=== PATIENT | male | born 1980 | race Caucasian/White ===

== ENCOUNTER → 2017-03-31 | Emergency (ER) | payer OTHER ==
[~2017-03-31] VITALS: Ht 167.6 cm; Wt 71.2 kg
[~2017-03-31] MED LIST: ESCI10TA PO; LIDOCAINE/PRILOCAINE 5 GM CREAM.GM. ONE; LIDOCAINE/PRILOCAINE 5 GM CREAM.GM. TP ONE; LORA-258 PO
--- NOTE | 2017-03-31 21:10 | NUR ---
Came to ED for C/O HEMMOROIDS, ABD PAIN, NAUSEOUS for few days now, had a problem before with the same problem.
--- NOTE | 2017-03-31 21:45 | NUR ---
MD assessed rectal using lidocaine, guiac test negative
--- NOTE | 2017-03-31 21:55 | NUR ---
Patient discharged to home in stable conditon. Written and verbal after care instructions given. Patient verbalizes understanding of instructions.
[2017-03-31 22:41] VITALS: BP 138/85
== END | disposition home or self-care (01) ==
LOC: ER 20:21
DX: K64.4 Residual hemorrhoidal skin tags (principal); Z91.018 Allergy to other foods
CPT/HCPCS: A4663

== ENCOUNTER 2018-03-25 16:19 | Emergency (ER) | payer BC, OTHER ==
[~2018-03-25] VITALS: Ht 167.6 cm; Wt 67.1 kg
[~2018-03-25 16:19] MED LIST changes: -LIDOCAINE/PRILOCAINE 5 GM CREAM.GM. ONE; -LIDOCAINE/PRILOCAINE 5 GM CREAM.GM. TP ONE
[2018-03-25] MEDS ORDERED: PREG50CA PO (16:28)
--- NOTE | 2018-03-25 17:50 | NUR ---
DR MENDIOLA AT THE BEDSIDE FOR MSE.
[2018-03-25] MEDS ORDERED: ONDANSETRON 4 MG/2 ML VIAL ONE (18:07)
[2018-03-25] MEDS ORDERED: KETOROLAC TROMETHAMINE 30 MG INJ ONE (18:07)
[2018-03-25 18:13] LABS: BASOPHILS % (AUTO) 0.4 % (0.0-2.0); EOSINOPHILS % (AUTO) 0.1 % (0.0-7.0); HEMOGLOBIN 15.1 g/dL (12.5-16.3); LYMPHOCYTES # (AUTO) 1.8 K/uL (20.0-40.0); LYMPHOCYTES % (AUTO) 21.3 % (20.5-51.5); MEAN CORPUSCULAR HEMOGLOBIN 34.1 uug (23.8-33.4); MEAN CORPUSCULAR HGB CONC 35 g/dL (32.5-36.3); MEAN CORPUSCULAR VOLUME 97.3 fL (73.0-96.2); MONOCYTES # (AUTO) 0.2 K/uL (2.0-10.0); MONOCYTES % (AUTO) 2.7 % (0.0-11.0); NEUTROPHILS # (AUTO) 6.3 K/uL (1.8-8.9); NEUTROPHILS % (AUTO) 75.5 % (38.5-71.5); PLATELET COUNT (AUTO) 187 K/uL (152-348); RED BLOOD CELL COUNT(AUTO) 4.42 MIL/uL (4.06-5.63); WHITE BLOOD COUNT (AUTO) 8.4 K/uL (3.6-10.2)
[2018-03-25] MEDS ORDERED: ONDANSETRON 4 MG/2 ML VIAL IV ONE (18:15)
[2018-03-25] MEDS ORDERED: KETOROLAC TROMETHAMINE 30 MG INJ IVP ONE (18:15)
[2018-03-25] MEDS ORDERED: IV NORMAL SALINE 1000 ML BAG IV ONE ×2 (18:15)
[2018-03-25 18:24] LABS: POTASSIUM 3.4 mmol/L (3.5-5.1)
[2018-03-25 18:28] LABS: BILIRUBIN,DIRECT 0.1 mg/dL (0.0-0.2); BILIRUBIN,TOTAL 0.8 mg/dL (0.2-1.0); TOTAL PROTEIN, SERUM 7.7 g/dL (6.4-8.2)
[2018-03-25] MEDS ORDERED: METOCLOPRAMIDE HCL 10 MG/2 ML VIAL ONE (18:37)
--- NOTE | 2018-03-25 18:38 | NUR ---
Pt state still being nauseous, aware.
[2018-03-25] MEDS ORDERED: METOCLOPRAMIDE HCL 10 MG/2 ML VIAL IV ONE (18:45)
--- NOTE | 2018-03-25 19:06 | NUR ---
Report given to Neelima VOGEL, I relinquish care of pt at this time.
--- NOTE | 2018-03-25 19:13 | NUR ---
REPORT TAKEN FROM JASPREET PRAJAPATI. ASSUMING PT CARE AT THIS TIME.
--- NOTE | 2018-03-25 19:41 | NUR ---
Patient discharged to home in stable conditon. Written and verbal after care instructions given. Patient verbalizes understanding of instructions. IV removed, w/ catheter intact. Pressure applied to site. No bleeding noted. Pt denies N/V at time of discharge. No distress noted. Pt accompanied by family member, and took all personal belongings.
[2018-03-25 19:44] VITALS: BP 122/76
== END 2018-03-25 19:45 | disposition home or self-care (01) ==
LOC: ER 16:20
DX: R11.10 Vomiting, unspecified (principal); R19.7 Diarrhea, unspecified; R10.9 Unspecified abdominal pain; Z88.8 Allergy status to other drugs, medicaments and biological substances; Z91.018 Allergy to other foods; Z79.899 Other long term (current) drug therapy
CPT/HCPCS: 36415; 83690; 85025; A4663; J1885; J2405; J2765; J7030

== ENCOUNTER 2018-03-31 18:29 | Emergency (ER) | payer BC, OTHER ==
[~2018-03-31] VITALS: Ht 165.1 cm; Wt 65.8 kg
[~2018-03-31 18:29] MED LIST changes: +PREG50CA PO
[2018-03-31] MEDS ORDERED: ONDANSETRON 4 MG/2 ML VIAL IV ONE (19:00)
[2018-03-31] MEDS ORDERED: IV NORMAL SALINE 1000 ML BAG IV ONE (19:00)
[2018-03-31] MEDS ORDERED: NORMAL SALINE FLUSH 10 ML DISP.SYRIN ONE (19:06)
[2018-03-31] MEDS ORDERED: SWABABLE VALVE TRANSFER SET EA MC ONE (19:06)
[2018-03-31] MEDS ORDERED: IOHEXOL 300MG/ML 100 ML INFUS..BTL ONE (19:07)
[2018-03-31] MEDS ORDERED: IV NORMAL SALINE 100 ML ONE (19:07)
[2018-03-31 19:08] LABS: BASOPHILS # (AUTO) 0.1 K/uL (0.0-8.0); BASOPHILS % (AUTO) 1.1 % (0.0-2.0); EOSINOPHILS # (AUTO) 0.3 K/uL (0.0-0.7); EOSINOPHILS % (AUTO) 4.4 % (0.0-7.0); HEMATOCRIT 45.1 % (36.7-47.1); HEMOGLOBIN 15.9 g/dL (12.5-16.3); LYMPHOCYTES # (AUTO) 2.8 K/uL (20.0-40.0); LYMPHOCYTES % (AUTO) 42.1 % (20.5-51.5); MEAN CORPUSCULAR HEMOGLOBIN 34.2 uug (23.8-33.4); MEAN CORPUSCULAR HGB CONC 35 g/dL (32.5-36.3); MEAN CORPUSCULAR VOLUME 97.1 fL (73.0-96.2); MONOCYTES # (AUTO) 0.3 K/uL (2.0-10.0); MONOCYTES % (AUTO) 4.6 % (0.0-11.0); NEUTROPHILS # (AUTO) 3.1 K/uL (1.8-8.9); NEUTROPHILS % (AUTO) 47.8 % (38.5-71.5); PLATELET COUNT (AUTO) 186 K/uL (152-348); RED BLOOD CELL COUNT(AUTO) 4.65 MIL/uL (4.06-5.63); WHITE BLOOD COUNT (AUTO) 6.6 K/uL (3.6-10.2)
[2018-03-31] MEDS ORDERED: ONDANSETRON 4 MG/2 ML VIAL ONE (19:10)
--- NOTE | 2018-03-31 19:18 | NUR ---
PATIENT WAS SEEN BY . IV PLACED, LABS DRAWN. MEDICATION GIVEN. CONSENT SIGNED FOR IV CONTRAST FRO CT. HANDOFF REPORT GIVEN TO GANESH
[2018-03-31 19:22] LABS: CREATININE 1.1 mg/dL (0.6-1.3); POTASSIUM 3.8 mmol/L (3.5-5.1)
[2018-03-31 19:26] LABS: BILIRUBIN,DIRECT 0.2 mg/dL (0.0-0.2); BILIRUBIN,TOTAL 0.7 mg/dL (0.2-1.0)
--- NOTE | 2018-03-31 19:28 | NUR ---
PT EN ROUTE TO CT SCAN ACCOMPANIED BY TRANSPORTER. NO DISTRESS NOTED. VSS.
--- NOTE | 2018-03-31 19:45 | NUR ---
pt back from ct scan. vss. no distress nted.
--- NOTE | 2018-03-31 19:48 | NUR ---
PT AMBULATES TO ER WITH C/O RIGHT LOWER ABDOMINAL PAIN THAT RADIATES TO BACK SINCE Thursday03/27/18. PT STATED HE URINATED AT 1700 TODAY AND IT WAS "HARD TO PEE." NO SOB/CONGESTION NOTED. NO CHEST PAIN NOTED. RESPIRATIONS EVEN + UNLABORED. [id number].
[2018-03-31 19:59] LABS: *BILIRUBIN,URIN NEGATIVE (NEGATIVE); *BLOOD, URINE NEGATIVE (NEGATIVE); *CLARITY,URINE CLEAR (CLEAR); *COLOR,URINE YELLOW (YELLOW); *KETONES,URINE NEGATIVE (NEGATIVE); *PROTEIN,URINE NEGATIVE (NEGATIVE); *UROBILINOGEN,URINE 0.2 E.U./dl (NORMAL); LEUKOCYTE ESTERASE ,URINE NEGATIVE (NEGATIVE); NITRITE, URINE NEGATIVE (NEGATIVE); PH,URINE 7.5 (5.0-8.0); UGLUCOSE NEGATIVE (NEGATIVE)
[2018-03-31 20:05] LABS: WBC,URINE 0-3 /HPF (0-3)
[2018-03-31 20:06] LABS: MUCUS,URINE MODERATE /LPF (0-FEW); URINE AMORPHOUS PHOSPHATES MODERATE /HPF
--- NOTE | 2018-03-31 20:23 | NUR ---
KAMILAH CALDWELL AT BEDSIDE FOR RE-EVALUATION.
--- NOTE | 2018-03-31 20:32 | NUR ---
Patient discharged to home in stable conditon. Written and verbal after care instructions given. Patient verbalizes understanding of instructions. Patient left ER and walks in steady gait. All belongings with pt. VSS. No distress noted.
[2018-03-31 20:34] VITALS: BP 131/84
== END 2018-03-31 21:02 | disposition home or self-care (01) ==
LOC: ER 18:30
DX: K85.90 Acute pancreatitis without necrosis or infection, unspecified (principal); K57.30 Diverticulosis of large intestine without perforation or abscess without bleeding
CPT/HCPCS: 36415; 83690; 85025; A4663; J2405; J3490; J7030; Q9967

== ENCOUNTER 2018-04-24 10:11 | Emergency (ER) | payer OTHER ==
[~2018-04-24] VITALS: Ht 167.6 cm; Wt 65.3 kg
[2018-04-24] MEDS ORDERED: ESCI20TA PO (10:38)
[2018-04-24] MEDS ORDERED: OMEP20TA5 PO (10:38)
[2018-04-24] MEDS ORDERED: PREG75CA PO (10:38)
[2018-04-24 11:06] LABS: *BILIRUBIN,URIN NEGATIVE (NEGATIVE); *BLOOD, URINE NEGATIVE (NEGATIVE); *CLARITY,URINE CLEAR (CLEAR); *COLOR,URINE YELLOW (YELLOW); *KETONES,URINE NEGATIVE (NEGATIVE); *PROTEIN,URINE NEGATIVE (NEGATIVE); LEUKOCYTE ESTERASE ,URINE NEGATIVE (NEGATIVE); NITRITE, URINE NEGATIVE (NEGATIVE); PH,URINE 8.5 (5.0-8.0); UGLUCOSE NEGATIVE (NEGATIVE)
[2018-04-24 11:11] LABS: BACTERIA,URINE NONE SEEN /HPF (NONE SEEN); RBC,URINE 0-3 /HPF (0-3); SQUAMOUS EPITHELIAL CELL,UR FEW /HPF (NONE SEEN); URINE AMORPHOUS PHOSPHATES RARE /HPF; WBC,URINE 0-3 /HPF (0-3)
--- NOTE | 2018-04-24 11:33 | NUR ---
Patient discharged to home in stable conditon. Written and verbal after care instructions given. Patient verbalizes understanding of instructions.
[2018-04-24 11:38] VITALS: BP 125/70
== END 2018-04-24 11:44 | disposition home or self-care (01) ==
LOC: ER 10:13
DX: R10.9 Unspecified abdominal pain (principal); R30.0 Dysuria; G89.29 Other chronic pain; M25.511 Pain in right shoulder; Z91.018 Allergy to other foods
CPT/HCPCS: 81001; 99283; A4663; J7030